=== PATIENT | male | born 1950 | race Two or more races ===

== ENCOUNTER → 2017-11-05 | Emergency (ER) | payer OTHER ==
[~2017-11-05] VITALS: Ht 180.3 cm; Wt 104.3 kg
[~2017-11-05] MED LIST: ALFUZOSIN; XANAX XR0.5 MG PO
== END | disposition home or self-care (01) ==
LOC: ER 08:27
DX: B34.9 Viral infection, unspecified (principal)

== ENCOUNTER 2017-11-09 11:16 | Outpatient (CLI) | payer OTHER | END 2017-11-09 11:21 | disposition home or self-care (01) | LOC: LAB 11:16 | DX: E78.4 Other hyperlipidemia (principal); N40.0 Benign prostatic hyperplasia without lower urinary tract symptoms ==

== ENCOUNTER → 2019-03-20 10:37 | Outpatient (CLI) | payer OTHER | END | disposition home or self-care (01) | LOC: LAB 10:37 | DX: R53.81 Other malaise (principal); Z09 Encounter for follow-up examination after completed treatment for conditions other than malignant neoplasm; N40.0 Benign prostatic hyperplasia without lower urinary tract symptoms ==

== ENCOUNTER 2019-11-30 19:00 | Emergency (ER) | payer OTHER ==
[~2019-11-30] VITALS: Ht 182.9 cm; Wt 104.3 kg
[2019-11-30] MEDS ORDERED: UROXATRAL10 MG PO (19:03)
== END 2019-11-30 20:00 | disposition home or self-care (01) ==
LOC: ER
DX: S90.01XA Contusion of right ankle, initial encounter (principal); S90.31XA Contusion of right foot, initial encounter; W10.9XXA Fall (on) (from) unspecified stairs and steps, initial encounter; Y93.89 Activity, other specified; Y92.238 Other place in hospital as the place of occurrence of the external cause; Y99.8 Other external cause status

== ENCOUNTER 2019-12-13 14:41 | Outpatient (CLI) | payer OTHER ==
[~2019-12-13 14:41] MED LIST changes: +UROXATRAL10 MG PO
== END 2019-12-13 14:42 | disposition home or self-care (01) ==
LOC: MRI 14:41
DX: S93.401A Sprain of unspecified ligament of right ankle, initial encounter (principal)
CPT/HCPCS: 73718

== ENCOUNTER 2019-12-16 08:25 | Outpatient (CLI) | payer OTHER | END 2019-12-16 15:00 | disposition home or self-care (01) | LOC: TOM 08:25 | DX: M79.671 Pain in right foot (principal) ==

== ENCOUNTER 2020-02-27 10:50 | Outpatient (CLI) | payer OTHER | END 2020-02-27 13:53 | disposition home or self-care (01) | LOC: RAD 10:50 | DX: M89.8X7 Other specified disorders of bone, ankle and foot (principal) ==

== ENCOUNTER → 2020-06-03 12:03 | Outpatient (CLI) | payer OTHER | END | disposition home or self-care (01) | LOC: LAB 12:03 | PROVIDERS: ATTEND General Practice | DX: E78.49 Other hyperlipidemia (principal); Z00.00 Encounter for general adult medical examination without abnormal findings; E55.9 Vitamin D deficiency, unspecified; R42 Dizziness and giddiness; N39.0 Urinary tract infection, site not specified; N40.0 Benign prostatic hyperplasia without lower urinary tract symptoms; E11.9 Type 2 diabetes mellitus without complications ==

== ENCOUNTER → 2020-08-19 10:18 | Outpatient (CLI) | payer OTHER | END | disposition home or self-care (01) | LOC: LAB 10:18 | PROVIDERS: ATTEND Orthopaedic Surgery Sports Medicine | DX: E03.8 Other specified hypothyroidism (principal); E04.2 Nontoxic multinodular goiter ==

== ENCOUNTER 2020-08-19 10:29 | Outpatient (CLI) | payer OTHER | END 2020-08-19 10:33 | disposition home or self-care (01) | LOC: SONOGRAMA 10:29 → MAMO-SONO 15:15 | PROVIDERS: ATTEND Radiology Diagnostic Radiology | DX: E04.2 Nontoxic multinodular goiter (principal); E03.8 Other specified hypothyroidism ==

== ENCOUNTER 2020-09-03 10:03 | Outpatient (CLI) | payer OTHER | END 2020-09-03 10:05 | disposition home or self-care (01) | LOC: SONOGRAMA 10:03 | PROVIDERS: ATTEND Pathology Anatomic Pathology & Clinical Pathology | DX: D34 Benign neoplasm of thyroid gland (principal); E04.1 Nontoxic single thyroid nodule; E07.89 Other specified disorders of thyroid ==

== ENCOUNTER 2020-11-30 10:41 | Outpatient (CLI) | payer OTHER | END 2020-11-30 10:55 | disposition home or self-care (01) | LOC: LAB 10:41 | PROVIDERS: ATTEND Internal Medicine Cardiovascular Disease | DX: I10 Essential (primary) hypertension (principal); E11.9 Type 2 diabetes mellitus without complications; E03.8 Other specified hypothyroidism; E78.2 Mixed hyperlipidemia; N40.0 Benign prostatic hyperplasia without lower urinary tract symptoms; E55.9 Vitamin D deficiency, unspecified; Z12.11 Encounter for screening for malignant neoplasm of colon ==

== ENCOUNTER 2021-05-29 07:30 | Outpatient (CLI) | payer OTHER | END 2021-05-29 18:50 | disposition home or self-care (01) | LOC: LAB 07:30 | PROVIDERS: ATTEND Emergency Medicine Pediatric Emergency Medicine | DX: Z03.818 Encounter for observation for suspected exposure to other biological agents ruled out (principal) ==

== ENCOUNTER 2021-11-02 11:52 | Outpatient (CLI) | payer OTHER | END 2021-11-02 12:04 | disposition home or self-care (01) | LOC: LAB 11:52 | PROVIDERS: ATTEND Surgery | DX: Z20.822 Contact with and (suspected) exposure to COVID-19 (principal) ==

== ENCOUNTER 2022-01-25 08:00 | Outpatient (CLI) | payer OTHER | END 2022-01-25 08:30 | disposition home or self-care (01) | LOC: PPH VACUNA 08:00 | PROVIDERS: ATTEND Emergency Medicine Pediatric Emergency Medicine | DX: Z23 Encounter for immunization (principal) | CPT/HCPCS: 90686; G0008 ==

== ENCOUNTER → 2022-09-28 07:28 | Outpatient (CLI) | payer OTHER ==
[~2022-09-28 07:28] MED LIST changes: +BENADRYL ALLERG25 MG PO; +FAMOTIDINE20 MG PO; +INTESTINEX680 M1 PO; +TAMS0.4C; +TAMS0.4C PO
== END | disposition home or self-care (01) ==
LOC: LAB 07:28
PROVIDERS: ATTEND General Practice
DX: N39.0 Urinary tract infection, site not specified (principal)

== ENCOUNTER → 2022-12-08 12:11 | Outpatient (CLI) | payer OTHER | END | disposition home or self-care (01) | LOC: LAB 12:11 | DX: R73.9 Hyperglycemia, unspecified (principal); E55.9 Vitamin D deficiency, unspecified; E78.5 Hyperlipidemia, unspecified; Z12.5 Encounter for screening for malignant neoplasm of prostate; I11.9 Hypertensive heart disease without heart failure; Z12.11 Encounter for screening for malignant neoplasm of colon; E03.9 Hypothyroidism, unspecified; N40.0 Benign prostatic hyperplasia without lower urinary tract symptoms ==

== ENCOUNTER 2025-01-22 08:26 | Outpatient (CLI) | payer OTHER | END 2025-01-22 15:30 | disposition home or self-care (01) | LOC: SONOGRAMA 08:26 | PROVIDERS: ATTEND Radiology Diagnostic Radiology | DX: E04.1 Nontoxic single thyroid nodule (principal) ==